=== PATIENT | male | born 1995 | race Two or more races ===

== ENCOUNTER 2024-08-05 09:40 | Emergency (ER) | payer OTHER ==
[~2024-08-05] VITALS: Ht 180.3 cm; Wt 117.5 kg
[2024-08-05 09:52] VITALS: BP 157/90; TEMP 98
[2024-08-05] MEDS ORDERED: LIDO30AD10 TP (10:10)
[2024-08-05] MEDS ORDERED: IBUP-1955 PO (10:10)
[2024-08-05] MEDS ORDERED: METH4TAB17 PO (10:10)
[2024-08-05] MEDS ORDERED: HYDR-4303 PO (10:10)
[2024-08-05] MEDS ORDERED: CYCL5TAB PO (10:10)
[2024-08-05] MEDS ORDERED: HYDROCODONE/APAP 5/325MG TABLET ONE (10:22)
[2024-08-05] MEDS ORDERED: KETOROLAC TROMETHAMINE 15 MG/ML VIAL ONE (10:22)
[2024-08-05] MEDS ORDERED: LIDOCAINE 5% (PATCH) 1 EA PATCH TP ONE (10:22)
[2024-08-05] MEDS: KETOROLAC TROMETHAMINE 15 MG/ML VIAL IM ONE (10:25)
[2024-08-05] MEDS: HYDROCODONE/APAP 5/325MG TABLET PO ONE (10:28)
[2024-08-05] MEDS: LIDOCAINE 5% (PATCH) 1 EA PATCH TP STA (10:30)
[2024-08-05 10:40] VITALS: O2SAT 98
== END 2024-08-05 10:40 | disposition home or self-care (01) ==
LOC: ER 09:45
DX: G89.29 Other chronic pain (principal); M54.41 Lumbago with sciatica, right side; F41.9 Anxiety disorder, unspecified; F32.A Depression, unspecified
CPT/HCPCS: 99283; 96372; J1885